=== PATIENT | male | born 1965 | race Caucasian/White ===

== ENCOUNTER 2024-12-06 10:03 | Outpatient (CLI) | payer OTHER | END 2024-12-06 10:04 | disposition home or self-care (01) | LOC: BICCT 10:03 | PROVIDERS: ATTEND Physician Assistant | DX: Z12.2 Encounter for screening for malignant neoplasm of respiratory organs (principal); I10 Essential (primary) hypertension | CPT/HCPCS: 75571 ==

== ENCOUNTER 2025-01-27 09:17 | Outpatient (CLI) | payer MEDICARE, BC | END 2025-01-27 09:18 | disposition home or self-care (01) | LOC: SCSULT 09:17 | PROVIDERS: ATTEND Internal Medicine Gastroenterology | DX: R79.89 Other specified abnormal findings of blood chemistry (principal); K76.0 Fatty (change of) liver, not elsewhere classified; K82.4 Cholesterolosis of gallbladder | CPT/HCPCS: 76705 ==